=== PATIENT | female | born 1980 ===

== ENCOUNTER 2017-11-22 18:18 | Inpatient (IN) | payer OTHER ==
[~2017-11-22] VITALS: Ht 172.7 cm; Wt 2.7 kg
[2017-11-22] MEDS ORDERED: OBSTETRIX EC C1 EACH PO (20:04)
[2017-11-22] MEDS ORDERED: ASA-EC81 MG PO (20:04)
== END 2017-11-28 15:57 | disposition home or self-care (01) | DRG 765 ==
LOC: LDR 18:18 → OB/GYN 18:18
PROVIDERS: Obstetrics & Gynecology
PROC: 4A033R1 Measurement of Arterial Saturation, Peripheral, Percutaneous Approach (ICD-10-PCS; 2017-11-23)
PROC: 4A1HXCZ Monitoring of Products of Conception, Cardiac Rate, External Approach (ICD-10-PCS; 2017-11-23)
PROC: 10D00Z1 Extraction of Products of Conception, Low, Open Approach (ICD-10-PCS; principal; 2017-11-23 14:00)
DX: O76 Abnormality in fetal heart rate and rhythm complicating labor and delivery (principal); O60.14X2 Preterm labor third trimester with preterm delivery third trimester, fetus 2; O13.4 Gestational [pregnancy-induced] hypertension without significant proteinuria, complicating childbirth; O99.824 Streptococcus B carrier state complicating childbirth; Z3A.35 35 weeks gestation of pregnancy; Z37.2 Twins, both liveborn; O30.043 Twin pregnancy, dichorionic/diamniotic, third trimester; O09.513 Supervision of elderly primigravida, third trimester